=== PATIENT | male | born 1945 | race Caucasian/White ===

== ENCOUNTER → 2021-02-21 | Outpatient (CLI) | payer MEDICARE ==
[2021-02-22 15:13] LABS: A/G RATIO 1.4 (0.7-1.7); ALBUMIN 3.9 g/dL (2.9-4.4); ALPHA-1-GLOBULIN 0.2 g/dL (0.0-0.4); ALPHA-2-GLOBULIN 0.7 g/dL (0.4-1.0); GAMMA GLOBULIN 0.9 g/dL (0.4-1.8); GLOBULIN, TOTAL 2.8 g/dL (2.2-3.9); IMMUNOGLOBULIN A, QN, SERUM 276 mg/dL (61-437); IMMUNOGLOBULIN G, QN, SERUM 885 mg/dL (603-1613); IMMUNOGLOBULIN M, QN, SERUM 38 mg/dL (15-143); M-SPIKE Not Observed g/dL (Not Observed); PROTEIN, TOTAL, SERUM 6.7 g/dL (6.0-8.5)
[2021-02-25 14:11] LABS: M-SPIKE, % Not Observed % (Not Observed); PROTEIN,TOTAL,URINE 7.3 mg/dL (Not Estab.)
== END ==
LOC: LAB 08:52
PROVIDERS: Internal Medicine Nephrology
DX: N18.31 Chronic kidney disease, stage 3a (principal)
CPT/HCPCS: 36415; 80069; 82570; 82784; 84155; 84156; 84165; 84166; 86334